=== PATIENT | female | born 1955 | race Two or more races ===

== ENCOUNTER 2017-09-28 09:02 | Inpatient (IN) | payer BC ==
[2017-09-28 09:26] LABS: BASO % 0 % (0-3); EOS % 0 % (0-3); HEMATOCRIT 41.8 % (36.0-47.0); HEMOGLOBIN 14.3 g/dL (12.0-15.5); LYMPH # 0.7 x10^3/uL (1.0-4.8); LYMPH % 10 % (24-48); MEAN CORPUSCULAR HEMOGLOBIN 31 pg (25-35); MEAN CORPUSCULAR HGB CONC 34 g/dL (31-37); MEAN CORPUSCULAR VOLUME 91 fL (79-100); MONO # 0.1 x10^3/uL (0.0-1.1); MONO % 2 % (0-9); NEUT # 6.4 x10^3uL (1.8-7.7); NEUT % 88 % (31-73); PLATELET COUNT 208 x10^3/uL (140-400); RED BLOOD COUNT 4.58 x10^6/uL (3.50-5.40); RED CELL DISTRIBUTION WIDTH 12.5 % (11.5-14.5); WHITE BLOOD COUNT 7.2 x10^3/uL (4.0-11.0)
[2017-09-28] MEDS: IV NORMAL SALINE 1000ML BAG 1,000 ML IV ×3 (09:29→21:13)
[2017-09-28] MEDS: ONDANSETRON PF 4 MG/2 ML VIAL. IV ×4 (09:30→21:14)
[2017-09-28] MEDS: fentaNYL PF VIAL 100 MCG/2 ML VIAL IV ×7 (09:31→20:40)
[2017-09-28 09:32] LABS: ADD MAN DIFF? YES
[2017-09-28 09:39] LABS: ANION GAP 11 (6-14); BLOOD UREA NITROGEN 9 mg/dL (7-20); CALCIUM 9.6 mg/dL (8.5-10.1); CARBON DIOXIDE 26 mmol/L (21-32); CHLORIDE 103 mmol/L (98-107); CREATININE 0.7 mg/dL (0.6-1.0); GFR 85.4; GLUCOSE 142 mg/dL (70-99); POTASSIUM 3.8 mmol/L (3.5-5.1); SODIUM 140 mmol/L (136-145)
[2017-09-28 09:41] LABS: PARTIAL THROMBOPLASTIN TIME 27 SEC (24-38); PROTHROMBIN TIME PATIENT 12.7 SEC (11.7-14.0)
[2017-09-28 09:44] LABS: ALBUMIN 3.9 g/dL (3.4-5.0); ALK PHOS 103 U/L (46-116); ALT (SGPT) 24 U/L (14-59); AST (SGOT) 12 U/L (15-37); DIRECT BILIRUBIN 0.1 mg/dL (0.0-0.2); LIPASE 150 U/L (73-393); TOTAL BILIRUBIN 0.4 mg/dL (0.2-1.0); TOTAL PROTEIN 7.8 g/dL (6.4-8.2)
[2017-09-28 09:49] LABS: TROPONINI 0.025 ng/mL (0.000-0.055)
[2017-09-28 09:53] LABS: NT-PRO BNP 86 pg/mL (0-124)
[2017-09-28] MEDS ORDERED: ONDANSETRON PF 4 MG/2 ML VIAL. IV ×2 (12:00→20:15)
[2017-09-28] MEDS ORDERED: PIP/TAZO PER PHARMACY MC (12:00)
[2017-09-28] MEDS: PIPERACILLIN/TAZOBACTAM 3.375 GM in IV NORMAL SALINE 50ML 50 ML IV ×3 (12:06→23:38)
[2017-09-28 12:57] LABS: % BANDS 7 % (0-9); % BASOS 1 % (0-3); % LYMPHS 12 % (24-48); % MONOS 2 % (0-10); % SEGS 78 % (35-66); PLT ESTIMATE ADEQUATE (ADEQUATE)
[2017-09-28] MEDS: MORPHINE SULFATE 2 MG/ML DISP.SYRIN. IV ×2 (13:54→16:12)
[2017-09-28] MEDS ORDERED: SURGICEL HEMOSTAT 2X3 EACH. (16:59)
[2017-09-28] MEDS: IV RINGERS,LACTATED 1000ML 1,000 ML IV ×2 (18:27→21:12)
[2017-09-28] MEDS ORDERED: fentaNYL PF VIAL 100 MCG/2 ML VIAL ×2 (18:27→19:57)
[2017-09-28] MEDS ORDERED: fentaNYL PF VIAL 250 MCG/5 ML VIAL (18:29)
[2017-09-28] MEDS ORDERED: ROCURONIUM 50 MG/5 ML VIAL. (18:29)
[2017-09-28] MEDS ORDERED: MORPHINE SULFATE 2 MG/ML DISP.SYRIN. IV ×2 (18:30→20:15)
[2017-09-28] MEDS ORDERED: LIDOCAINE 2% PF Vial for OR 5 ML VIAL. (18:30)
[2017-09-28] MEDS ORDERED: LIDOCAINE 1% PF 2 ML VIAL. ID (18:30)
[2017-09-28] MEDS ORDERED: PROPOFOL 20 ML IV (18:30)
[2017-09-28] MEDS ORDERED: ONDANSETRON PF 4 MG/2 ML VIAL. (18:30)
[2017-09-28] MEDS ORDERED: fentaNYL PF VIAL 100 MCG/2 ML VIAL IV (18:30)
[2017-09-28] MEDS ORDERED: DEXAMETHASONE SOD PHOS 20 MG/5 ML VIAL. (18:30)
[2017-09-28] MEDS: HEPARIN 1,000 UNIT in IV NORMAL SALINE 1,000 ML for SURG PERIOP IRR (18:57)
[2017-09-28] MEDS: IOHEXOL 300 MG/ML 100ML VIAL. (18:57)
[2017-09-28] MEDS: BUPIVACAINE-EPI 0.25%-1:200000 50 ML VIAL. (18:57)
[2017-09-28] MEDS ORDERED: SEVOFLURANE 61 TO 120 MINUTES. IH (19:45)
[2017-09-28] MEDS ORDERED: GLYCOPYRROLATE 1 MG/5 ML VIAL. (19:46)
[2017-09-28] MEDS ORDERED: NEOSTIGMINE 10 MG/10 ML VIAL. (19:46)
[2017-09-28] MEDS: BISACODYL 10 MG SUPP.RECT. (19:56)
[2017-09-28] MEDS ORDERED: PROCHLORPERAZINE 10 MG/2 ML VIAL. (19:57)
[2017-09-28] MEDS ORDERED: 0.9 % SODIUM CHLORIDE 10 ML DISP.SYRIN. IV (20:15)
[2017-09-28] MEDS ORDERED: DEXTROSE 50% 25 GM / 50ML DISP.SYRIN. IV (20:15)
[2017-09-28] MEDS: PROCHLORPERAZINE 10 MG/2 ML VIAL. IV (20:23)
[2017-09-28] MEDS: DOCUSATE SODIUM 100 MG CAPSULE. PO (21:10)
[2017-09-28] MEDS: KETOROLAC 15 MG/ML VIAL. IV (21:14)
[2017-09-29] MEDS: IV RINGERS,LACTATED 1000ML 1,000 ML IV (05:29)
[2017-09-29] MEDS: PIPERACILLIN/TAZOBACTAM 3.375 GM in IV NORMAL SALINE 50ML 50 ML IV ×2 (05:44→12:00)
[2017-09-29] MEDS: KETOROLAC 15 MG/ML VIAL. IV (05:46)
[2017-09-29] MEDS: ONDANSETRON PF 4 MG/2 ML VIAL. IV (05:46)
[2017-09-29] MEDS: IV NORMAL SALINE 1000ML BAG 1,000 ML IV (05:51)
[2017-09-29 06:03] LABS: ADD MAN DIFF? NO
[2017-09-29 06:20] LABS: BASO % 0 % (0-3); EOS % 0 % (0-3); HEMATOCRIT 37.2 % (36.0-47.0); LYMPH # 0.5 x10^3/uL (1.0-4.8); LYMPH % 12 % (24-48); MEAN CORPUSCULAR HEMOGLOBIN 32 pg (25-35); MEAN CORPUSCULAR HGB CONC 35 g/dL (31-37); MEAN CORPUSCULAR VOLUME 92 fL (79-100); MONO # 0.1 x10^3/uL (0.0-1.1); MONO % 2 % (0-9); NEUT # 3.9 x10^3uL (1.8-7.7); NEUT % 86 % (31-73); PLATELET COUNT 177 x10^3/uL (140-400); RED BLOOD COUNT 4.06 x10^6/uL (3.50-5.40); RED CELL DISTRIBUTION WIDTH 12.8 % (11.5-14.5); WHITE BLOOD COUNT 4.5 x10^3/uL (4.0-11.0)
[2017-09-29 06:31] LABS: ANION GAP 11 (6-14); BLOOD UREA NITROGEN 5 mg/dL (7-20); CALCIUM 8.7 mg/dL (8.5-10.1); CARBON DIOXIDE 23 mmol/L (21-32); CHLORIDE 107 mmol/L (98-107); CREATININE 0.8 mg/dL (0.6-1.0); GFR 73.2; GLUCOSE 154 mg/dL (70-99); POTASSIUM 3.7 mmol/L (3.5-5.1); SODIUM 141 mmol/L (136-145)
[2017-09-29] MEDS: INFLUENZA VAX SCREEN BY RX. MC (09:00)
[2017-09-29] MEDS: HYDROcodone/APAP 5/325MG 1 TAB TABLET PO (09:31)
[2017-09-29] MEDS: DOCUSATE SODIUM 100 MG CAPSULE. PO (09:32)
[2017-09-29] MEDS: ENOXAPARIN 40 MG/0.4 ML SYRINGE. SQ (09:33)
[2017-09-29] MEDS: FLU VACC QS2017-18 (36MOS+)/PF 0.5 ML SYRINGE. VAX IM (14:31)
== END 2017-09-29 15:55 | disposition home or self-care (01) | DRG 419 ==
LOC: ER 09:02 → ED HOLD 11:54 → 4 NORTH 15:37
PROC: 0FT44ZZ Resection of Gallbladder, Percutaneous Endoscopic Approach (ICD-10-PCS; principal; 2017-09-28 15:30)
PROC: BF101ZZ Fluoroscopy of Bile Ducts using Low Osmolar Contrast (ICD-10-PCS; 2017-09-28 15:30)
DX: K80.00 Calculus of gallbladder with acute cholecystitis without obstruction (principal); E66.9 Obesity, unspecified; K82.8 Other specified diseases of gallbladder; F41.9 Anxiety disorder, unspecified; Z83.3 Family history of diabetes mellitus; Z90.49 Acquired absence of other specified parts of digestive tract; Z68.31 Body mass index [BMI] 31.0-31.9, adult
CPT/HCPCS: 36415; 71045; 74300; 76705; 80048; 80076; 83690; 83880; 84484; 85007; 85025; 85610; 85730; 88304; 90686; 93005; 96361; 96365; 96375; 96376; 99285; 99285-25; J0690; J0780; J1100; J1644; J1650; J1885; J2270; J2405; J2543; J2704; J2710; J3010; J3490; J7030; Q9967